=== PATIENT | female | born 2000 | race Caucasian/White ===

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

== ENCOUNTER → 2020-09-30 | Outpatient (REF) | payer OTHER ==
[2020-09-30 12:34] LABS: BASO # 0.1 10^3/uL (0.0-0.2); BASO % 0.6 % (0.0-1.0); EOS # 0.4 10^3/uL (0.0-0.5); EOS % 3.3 % (0.0-3.0); HEMATOCRIT 32.7 % (36.0-47.0); HEMOGLOBIN 8.9 g/dl (12.0-15.5); LYMPH # 3.3 10^3/uL (1.5-5.0); LYMPH % 25.3 % (24.0-44.0); MEAN CORPUSCULAR HEMOGLOBIN 18.4 pg (27.0-33.0); MEAN CORPUSCULAR HGB CONC 27.2 g/dl (32.0-36.5); MEAN CORPUSCULAR VOLUME 67.4 fl (80.0-96.0); MONO # 0.6 10^3/uL (0.0-0.8); NEUTROPHILS # 8.4 10^3/uL (1.5-8.5); NEUTROPHILS % 65.2 % (36.0-66.0); PLATELET COUNT, AUTOMATED 526 10^3/uL (150-450); RED BLOOD COUNT 4.85 10^6/uL (4.00-5.40); WHITE BLOOD COUNT 12.8 10^3/uL (4.0-10.0)
[2020-09-30 14:00] LABS: ALBUMIN 3.4 GM/DL (3.2-5.2); ALT/SGPT 34 U/L (12-78); BILIRUBIN,TOTAL 0.4 MG/DL (0.2-1.0); BLOOD UREA NITROGEN 9 MG/DL (7-18); CALCIUM LEVEL 9.2 MG/DL (8.5-10.1); CARBON DIOXIDE LEVEL 28 MEQ/L (21-32); CHLORIDE LEVEL 107 MEQ/L (98-107); CHOLESTEROL LEVEL 183 MG/DL (<200); CHOLESTEROL RISK RATIO 3.978 (<5); CORTISOL AM 10.2 UG/DL (4.3-22.4); GLUCOSE, FASTING 82 MG/DL (70-100); HDL CHOLESTEROL 46 MG/DL (>40); LDL CHOLESTEROL 112 MG/DL (<100); NON-HDL-C 137 MG/DL; POTASSIUM SERUM 3.8 MEQ/L (3.5-5.1); SODIUM LEVEL 141 MEQ/L (136-145); THYROID PEROXIDASE ANTIBODY 28.8 U/ML (<60.0); TOTAL 25(OH) VITAMIN D 10.6 NG/ML (30.0-100.0); TOTAL PROTEIN 6.7 GM/DL (6.4-8.2); TRIGLYCERIDES LEVEL 126 MG/DL (<150)
[2020-09-30 14:22] LABS: HEMOGLOBIN A1c 5.6 %
== END ==
LOC: M LAB REF 11:39
PROVIDERS: ATTEND Pediatrics
DX: L83 Acanthosis nigricans (principal); L20.9 Atopic dermatitis, unspecified; E03.9 Hypothyroidism, unspecified; E55.9 Vitamin D deficiency, unspecified; E66.01 Morbid (severe) obesity due to excess calories

== ENCOUNTER → 2020-11-23 | Outpatient (REF) | payer OTHER | LOC: M WUC 19:20 | PROVIDERS: ATTEND Physician Assistant | DX: J02.9 Acute pharyngitis, unspecified (principal) ==

== ENCOUNTER → 2022-06-01 | Outpatient (CLI) | payer OTHER ==
[2022-06-01 06:40] LABS: BASO # 0.1 10^3/uL (0.0-0.2); EOS # 0.6 10^3/uL (0.0-0.5); HEMATOCRIT 40.1 % (36.0-47.0); HEMOGLOBIN 12.4 g/dl (12.0-15.5); LYMPH % 25.5 % (24.0-44.0); MEAN CORPUSCULAR HEMOGLOBIN 23.3 pg (27.0-33.0); MEAN CORPUSCULAR HGB CONC 30.9 g/dl (32.0-36.5); MEAN CORPUSCULAR VOLUME 75.2 fl (80.0-96.0); MONO # 0.7 10^3/uL (0.0-0.8); MONO % 8.9 % (2.0-8.0); NEUTROPHILS # 4.5 10^3/uL (1.5-8.5); NEUTROPHILS % 56.3 % (36.0-66.0); PLATELET COUNT, AUTOMATED 377 10^3/uL (150-450); RED BLOOD COUNT 5.33 10^6/uL (4.00-5.40)
[2022-06-01 07:04] LABS: ERYTHROCYTE SEDIMENTATION RATE 22 mm/hr (0-20)
[2022-06-01 07:13] LABS: ALBUMIN 3.4 G/DL (3.2-5.2); ALKALINE PHOSPHATASE 88 U/L (46-116); ALT/SGPT 35 U/L (7.0-40); AST/SGOT 21 U/L (<34); BILIRUBIN,TOTAL 0.3 MG/DL (0.3-1.2); BLOOD UREA NITROGEN 11 MG/DL (9-23); CALCIUM LEVEL 8.8 MG/DL (8.5-10.1); CARBON DIOXIDE LEVEL 24 MMOL/L (20-31); CHLORIDE LEVEL 106 MMOL/L (98-107); CREATININE FOR GFR 0.71 MG/DL (0.55-1.30); GLOMERULAR FILTRATION RATE > 60.0 (>60); GLUCOSE, FASTING 86 MG/DL (60-100); POTASSIUM SERUM 4.1 MMOL/L (3.5-5.1); RHEUMATOID FACTOR QUANT < 3.5 IU/ML (<14); SODIUM LEVEL 139 MMOL/L (136-145); TOTAL PROTEIN 6.8 G/DL (5.7-8.2)
[2022-06-01 07:14] LABS: FOLATE 13.8 NG/ML (>5.4); TOTAL 25(OH) VITAMIN D 22.6 NG/ML (20.0-100.0); VITAMIN B12 LEVEL 319 PG/ML (211-911)
[2022-06-02 13:09] LABS: ANTINUCLEAR ANTIBODIES DIRECT Negative (Negative)
== END ==
LOC: M LAB 06:08
PROVIDERS: ATTEND Psychiatry & Neurology Neurology
DX: R51.9 Headache, unspecified (principal)

== ENCOUNTER → 2022-08-03 | Outpatient (REF) | payer OTHER | LOC: M LAB REF 21:13 | PROVIDERS: ATTEND Physician Assistant | DX: R50.9 Fever, unspecified (principal) ==

== ENCOUNTER 2022-09-13 07:00 | Emergency (ER) | payer OTHER ==
[~2022-09-13] VITALS: Ht 165.1 cm; Wt 140.9 kg
[2022-09-13] MEDS ORDERED: MECL-58 (07:09)
[2022-09-13] MEDS ORDERED: ZONI100C67 (07:09)
[2022-09-13] MEDS ORDERED: METF500T13 (07:09)
[2022-09-13] MEDS ORDERED: FERR325T19 (07:09)
[2022-09-13] MEDS ORDERED: DOCU100C16 (07:09)
[2022-09-13] MEDS ORDERED: FLUO20CA22 (07:09)
[2022-09-13] MEDS ORDERED: VITA200016 (07:09)
[2022-09-13] MEDS ORDERED: predniSONE 20 MG TAB PO ONE (07:30)
[2022-09-13] MEDS: COMBIVENT RESPIMAT 100-20MCG INHALER 4GM INH SCH ×3 (07:57→08:27)
[2022-09-13] MEDS ORDERED: ALBU6.7H6 INH (08:14)
[2022-09-13] MEDS ORDERED: PRED20TA PO (08:14)
[2022-09-13] MEDS ORDERED: BENZ-18 PO (08:14)
[2022-09-13 08:19] VITALS: BP 144/70
== END 2022-09-13 08:40 | disposition home or self-care (01) ==
LOC: M ED 07:00
DX: U07.1 COVID-19 (principal); R05.9 Cough, unspecified; E11.9 Type 2 diabetes mellitus without complications
CPT/HCPCS: 71046; 94640; 99283; J7512

== ENCOUNTER 2022-09-20 18:06 | Emergency (ER) | payer OTHER ==
[~2022-09-20] VITALS: Ht 167.6 cm; Wt 140.9 kg
[~2022-09-20 18:06] MED LIST: ALBU6.7H6 INH; BENZ-18 PO; DOCU100C16; FERR325T19; FLUO20CA22; MECL-58; METF500T13; PRED20TA PO; VITA200016; ZONI100C67
[2022-09-20 19:34] LABS: BASO # 0.1 10^3/uL (0.0-0.2); BASO % 0.7 % (0.0-1.0); EOS # 0.4 10^3/uL (0.0-0.5); EOS % 2.6 % (0.0-3.0); HEMATOCRIT 39.7 % (36.0-47.0); HEMOGLOBIN 12.4 g/dl (12.0-15.5); LYMPH # 2.8 10^3/uL (1.5-5.0); MEAN CORPUSCULAR HGB CONC 31.2 g/dl (32.0-36.5); MEAN CORPUSCULAR VOLUME 76.8 fl (80.0-96.0); MONO # 1.1 10^3/uL (0.0-0.8); MONO % 7.6 % (2.0-8.0); NEUTROPHILS # 9.7 10^3/uL (1.5-8.5); NEUTROPHILS % 68.8 % (36.0-66.0); PLATELET COUNT, AUTOMATED 397 10^3/uL (150-450); RED BLOOD COUNT 5.17 10^6/uL (4.00-5.40)
[2022-09-20 20:05] LABS: ALBUMIN 3.5 G/DL (3.2-5.2); ALKALINE PHOSPHATASE 100 U/L (46-116); ALT/SGPT 33 U/L (7.0-40); AST/SGOT 17 U/L (<34); BILIRUBIN,DIRECT 0.1 MG/DL (<0.4); BILIRUBIN,TOTAL 0.3 MG/DL (0.3-1.2); BLOOD UREA NITROGEN 10 MG/DL (9-23); CALCIUM LEVEL 9.1 MG/DL (8.5-10.1); CARBON DIOXIDE LEVEL 26 MMOL/L (20-31); CHLORIDE LEVEL 107 MMOL/L (98-107); CREATININE FOR GFR 0.71 MG/DL (0.55-1.30); GLOMERULAR FILTRATION RATE > 60.0 (>60); GLUCOSE, FASTING 82 MG/DL (60-100); POTASSIUM SERUM 4.3 MMOL/L (3.5-5.1); SODIUM LEVEL 140 MMOL/L (136-145); TOTAL PROTEIN 6.7 G/DL (5.7-8.2)
[2022-09-20] MEDS ORDERED: ALBUTEROL SULFATE 2.5MG/0.5ML INH NEB SOLN NEB ONE (21:55)
[2022-09-20] MEDS ORDERED: BENZ200C70 PO (23:03)
[2022-09-20] MEDS ORDERED: ALBU6.7H6 INH (23:03)
[2022-09-20 23:17] VITALS: BP 127/83
== END 2022-09-20 23:24 | disposition home or self-care (01) ==
LOC: M ED 18:06
DX: J20.9 Acute bronchitis, unspecified (principal); E11.9 Type 2 diabetes mellitus without complications

== ENCOUNTER → 2022-11-05 | Outpatient (REF) | payer OTHER ==
[~2022-11-05] MED LIST changes: +BENZ200C70 PO
[2022-11-05 17:46] LABS: BASO # 0.1 10^3/uL (0.0-0.2); BASO % 0.8 % (0.0-1.0); EOS # 0.3 10^3/uL (0.0-0.5); EOS % 3.1 % (0.0-3.0); HEMATOCRIT 39.8 % (36.0-47.0); HEMOGLOBIN 12.5 g/dl (12.0-15.5); LYMPH # 2.8 10^3/uL (1.5-5.0); LYMPH % 25.1 % (24.0-44.0); MEAN CORPUSCULAR HEMOGLOBIN 24.3 pg (27.0-33.0); MEAN CORPUSCULAR HGB CONC 31.4 g/dl (32.0-36.5); MEAN CORPUSCULAR VOLUME 77.4 fl (80.0-96.0); MONO # 0.6 10^3/uL (0.0-0.8); MONO % 5.4 % (2.0-8.0); NEUTROPHILS # 7.3 10^3/uL (1.5-8.5); NEUTROPHILS % 65.3 % (36.0-66.0); PLATELET COUNT, AUTOMATED 384 10^3/uL (150-450); RED BLOOD COUNT 5.14 10^6/uL (4.00-5.40); WHITE BLOOD COUNT 11.1 10^3/uL (4.0-10.0)
[2022-11-05 18:07] LABS: LIPASE 31 U/L (12-53)
[2022-11-05 18:09] LABS: ALBUMIN 3.9 G/DL (3.2-5.2); ALKALINE PHOSPHATASE 99 U/L (46-116); ALT/SGPT 21 U/L (7.0-40); AST/SGOT 11 U/L (<34); BILIRUBIN,TOTAL 0.3 MG/DL (0.3-1.2); BLOOD UREA NITROGEN 13 MG/DL (9-23); CALCIUM LEVEL 9.1 MG/DL (8.5-10.1); CARBON DIOXIDE LEVEL 23 MMOL/L (20-31); CHLORIDE LEVEL 106 MMOL/L (98-107); CREATININE FOR GFR 0.92 MG/DL (0.55-1.30); GLOMERULAR FILTRATION RATE > 60.0 (>60); GLUCOSE, FASTING 74 MG/DL (60-100); SODIUM LEVEL 140 MMOL/L (136-145); TOTAL PROTEIN 7.2 G/DL (5.7-8.2)
== END ==
LOC: M LAB REF 16:21
PROVIDERS: ATTEND Pediatrics
DX: E66.01 Morbid (severe) obesity due to excess calories (principal); R10.11 Right upper quadrant pain; R73.03 Prediabetes

== ENCOUNTER → 2022-11-23 | Outpatient (CLI) | payer OTHER ==
[~2022-11-23] MED LIST changes: +ONDA4TAB6 PO; +PROZ20CA11; +VYVA30CA4
== END ==
LOC: M RAD 08:20
PROVIDERS: ATTEND Pediatrics
DX: R10.11 Right upper quadrant pain (principal); Z53.8 Procedure and treatment not carried out for other reasons

== ENCOUNTER → 2023-02-16 | Outpatient (CLI) | payer OTHER | LOC: M RAD 11:42 | PROVIDERS: ATTEND Surgery | DX: R10.11 Right upper quadrant pain (principal) | CPT/HCPCS: 78227; A9537 ==

== ENCOUNTER → 2023-03-31 | Day surgery (SDC) | payer OTHER ==
[~2023-03-31] VITALS: Ht 167.6 cm; Wt 143.3 kg
[~2023-03-31] MED LIST changes: +ACET1TAB55 PO; +DEPO150I IM; -FERR325T19; +FERR325T19 PO; -FLUO20CA22; +FLUO20CA22 PO; +IBUP200C28 PO; -METF500T13; +METF500T13 PO; +METOCLOPRAMIDE INJ 10MG/2ML VIAL As Ordered ONE; +MIDAZOLAM INJ 2MG/2ML VIAL As Ordered ONE; +PROA1AER2 INH; +SUGAMMADEX SODIUM 500 MG/5 ML VIAL (BRIDION) As Ordered ONE; -VITA200016; +VITA200016 PO; -VYVA30CA4; +VYVA30CA4 PO; -ZONI100C67; +ZONI100C67 PO; +fentaNYL 100 MCG/2 ML INJECTION As Ordered ONE; +propofoL 200 MG/20 ML VIAL As Ordered ONE
== END | disposition home or self-care (01) ==
LOC: M SDC 09:17
PROVIDERS: ATTEND Surgery
DX: K82.8 Other specified diseases of gallbladder (principal); Z53.09 Procedure and treatment not carried out because of other contraindication

== ENCOUNTER 2023-04-14 10:26 | Day surgery (SDC) | payer OTHER ==
[~2023-04-14] VITALS: Ht 167.6 cm; Wt 143.1 kg
[~2023-04-14 10:26] MED LIST changes: +ALLE180T33 PO; -METOCLOPRAMIDE INJ 10MG/2ML VIAL As Ordered ONE; -MIDAZOLAM INJ 2MG/2ML VIAL As Ordered ONE; -SUGAMMADEX SODIUM 500 MG/5 ML VIAL (BRIDION) As Ordered ONE; -fentaNYL 100 MCG/2 ML INJECTION As Ordered ONE; -propofoL 200 MG/20 ML VIAL As Ordered ONE
[2023-04-14] MEDS ORDERED: LR 1,000 ML IV SCH ×2 (10:45→14:45)
[2023-04-14] MEDS ORDERED: ONDANSETRON 4MG 2ML VIAL As Ordered ONE (14:00)
[2023-04-14] MEDS ORDERED: MIDAZOLAM INJ 2MG/2ML VIAL As Ordered ONE (14:00)
[2023-04-14] MEDS ORDERED: ROCURONIUM BROMIDE 50MG/5ML VIAL As Ordered ONE (14:00)
[2023-04-14] MEDS ORDERED: ACETAMINOPHEN 1000MG 100ML IV BAG As Ordered ONE (14:00)
[2023-04-14] MEDS ORDERED: SUGAMMADEX SODIUM 500 MG/5 ML VIAL (BRIDION) As Ordered ONE (14:00)
[2023-04-14] MEDS ORDERED: propofoL 200 MG/20 ML VIAL As Ordered ONE (14:00)
[2023-04-14] MEDS ORDERED: fentaNYL 250 MCG/5 ML INJECTION As Ordered ONE (14:00)
[2023-04-14] MEDS ORDERED: dexmedeTOMIDine (4MCG/ML)200MCG/50ML BTL (PRECEDEX) As Ordered ONE (14:00)
[2023-04-14] MEDS ORDERED: LIDOCAINE 2% 100MG/5ML SDV (FOR ANES.) As Ordered ONE (14:00)
[2023-04-14] MEDS ORDERED: ESMOLOL INJ 100MG/10ML VIAL As Ordered ONE (14:07)
[2023-04-14] MEDS ORDERED: KETOROLAC 60MG 2ML VIAL As Ordered ONE (14:13)
[2023-04-14] MEDS ORDERED: ONDANSETRON 4MG 2ML VIAL IV PRN (14:45)
[2023-04-14] MEDS ORDERED: MEPERIDINE 25 MG/ML 1ML VIAL IV PRN (14:45)
[2023-04-14] MEDS: fentaNYL 100 MCG/2 ML INJECTION IV PRN ×3 (15:01→15:12)
[2023-04-14] MEDS: oxyCODONE 5MG TAB PO PRN ×2 (15:13→15:47)
[2023-04-14] MEDS: HYDROMORPHONE HCL 0.5 MG/ 0.5 ML SYRINGE IV PRN ×2 (15:27→15:37)
[2023-04-14 16:45] VITALS: BP 128/87; TEMP 98; O2SAT 95
[2023-04-14] MEDS ORDERED: NORCO, ANEXSIA 5/325MG TABLET (HYDROcodone/ACETAMINOPHEN) PO PRN (22:40)
== END 2023-04-14 16:52 | disposition home or self-care (01) ==
LOC: M SDC 10:26
PROVIDERS: ATTEND Surgery
DX: K81.1 Chronic cholecystitis (principal); E11.9 Type 2 diabetes mellitus without complications; E03.9 Hypothyroidism, unspecified; R06.83 Snoring; J45.909 Unspecified asthma, uncomplicated; F90.9 Attention-deficit hyperactivity disorder, unspecified type; F41.9 Anxiety disorder, unspecified; F32.A Depression, unspecified; Z68.43 Body mass index [BMI] 50.0-59.9, adult; D64.9 Anemia, unspecified; Z79.899 Other long term (current) drug therapy; Z79.84 Long term (current) use of oral hypoglycemic drugs
CPT/HCPCS: 47562; 88304; J0131; J0665; J1100; J1170; J1805; J1885; J2250; J2405; J3010; S2900

== ENCOUNTER → 2023-04-20 | Outpatient (REF) | payer OTHER ==
[2023-04-20 17:18] LABS: BASO # 0.1 10^3/uL (0.0-0.2); BASO % 0.6 % (0.0-1.0); EOS # 0.2 10^3/uL (0.0-0.5); EOS % 2.4 % (0.0-3.0); HEMOGLOBIN 13.7 g/dl (12.0-15.5); LYMPH # 1.8 10^3/uL (1.5-5.0); LYMPH % 18.3 % (24.0-44.0); MEAN CORPUSCULAR HEMOGLOBIN 24.3 pg (27.0-33.0); MEAN CORPUSCULAR HGB CONC 31.1 g/dl (32.0-36.5); MONO # 0.5 10^3/uL (0.0-0.8); MONO % 5.2 % (2.0-8.0); NEUTROPHILS # 7.4 10^3/uL (1.5-8.5); NEUTROPHILS % 73.3 % (36.0-66.0); PLATELET COUNT, AUTOMATED 412 10^3/uL (150-450); RED BLOOD COUNT 5.64 10^6/uL (4.00-5.40); WHITE BLOOD COUNT 10.1 10^3/uL (4.0-10.0)
[2023-04-20 17:25] LABS: CHOLESTEROL RISK RATIO 3.72 (<5); HDL CHOLESTEROL 43.7 MG/DL (>40); LDL CHOLESTEROL 97.5 MG/DL (<100); NON-HDL-C 119.3 MG/DL; PERCENT SATURATION 6.6 % (13.2-45.0)
[2023-04-20 17:28] LABS: FERRITIN 46.5 NG/ML (7.3-270.7); THYROID STIMULATING HORMONE 3.056 uIU/ML (0.55-4.78)
[2023-04-20 17:50] LABS: HEMOGLOBIN A1c 4.9 % (4.0-6.0)
== END ==
LOC: M LAB REF 16:21
PROVIDERS: ATTEND Pediatrics
DX: R73.03 Prediabetes (principal); D50.9 Iron deficiency anemia, unspecified; E66.01 Morbid (severe) obesity due to excess calories

== ENCOUNTER → 2023-04-28 | Outpatient (CLI) | payer OTHER ==
[2023-04-28 13:09] LABS: BASO # 0.1 10^3/uL (0.0-0.2); BASO % 0.7 % (0.0-1.0); EOS # 0.6 10^3/uL (0.0-0.5); HEMATOCRIT 40.8 % (36.0-47.0); HEMOGLOBIN 12.9 g/dl (12.0-15.5); LYMPH # 2.4 10^3/uL (1.5-5.0); LYMPH % 20.5 % (24.0-44.0); MEAN CORPUSCULAR HEMOGLOBIN 23.9 pg (27.0-33.0); MEAN CORPUSCULAR HGB CONC 31.6 g/dl (32.0-36.5); MEAN CORPUSCULAR VOLUME 75.7 fl (80.0-96.0); MONO # 0.5 10^3/uL (0.0-0.8); MONO % 4.1 % (2.0-8.0); NEUTROPHILS % 69.3 % (36.0-66.0); PLATELET COUNT, AUTOMATED 460 10^3/uL (150-450); RED BLOOD COUNT 5.39 10^6/uL (4.00-5.40); WHITE BLOOD COUNT 11.6 10^3/uL (4.0-10.0)
[2023-04-28 13:37] LABS: ALBUMIN 3.5 G/DL (3.2-5.2); ALKALINE PHOSPHATASE 91 U/L (46-116); ALT/SGPT 29 U/L (7.0-40); AST/SGOT 9 U/L (<34); BILIRUBIN,TOTAL 0.3 MG/DL (0.3-1.2); BLOOD UREA NITROGEN 11 MG/DL (9-23); CALCIUM LEVEL 9.6 MG/DL (8.5-10.1); CARBON DIOXIDE LEVEL 25 MMOL/L (20-31); CHLORIDE LEVEL 108 MMOL/L (98-107); CREATININE FOR GFR 0.66 MG/DL (0.55-1.30); GLOMERULAR FILTRATION RATE > 60.0 (>60); GLUCOSE, FASTING 93 MG/DL (60-100); POTASSIUM SERUM 4.2 MMOL/L (3.5-5.1); SODIUM LEVEL 142 MMOL/L (136-145); TOTAL PROTEIN 7.2 G/DL (5.7-8.2)
== END ==
LOC: M LAB 12:02
PROVIDERS: ATTEND Physician Assistant
DX: K82.8 Other specified diseases of gallbladder (principal)

== ENCOUNTER 2023-05-24 07:12 | Emergency (ER) | payer OTHER ==
[~2023-05-24] VITALS: Ht 167.6 cm; Wt 143.8 kg
[2023-05-24 07:14] VITALS: BP 134/78; TEMP 96.6; O2SAT 96
[2023-05-24] MEDS ORDERED: ONDANSETRON 4MG 2ML VIAL IV ONE (07:45)
[2023-05-24 08:09] LABS: BASO # 0.1 10^3/uL (0.0-0.2); BASO % 0.9 % (0.0-1.0); EOS # 0.4 10^3/uL (0.0-0.5); EOS % 4.2 % (0.0-3.0); HEMOGLOBIN 13.3 g/dl (12.0-15.5); LYMPH # 2.3 10^3/uL (1.5-5.0); LYMPH % 22.5 % (24.0-44.0); MEAN CORPUSCULAR HEMOGLOBIN 24.4 pg (27.0-33.0); MEAN CORPUSCULAR HGB CONC 31.7 g/dl (32.0-36.5); MEAN CORPUSCULAR VOLUME 77.2 fl (80.0-96.0); MONO # 0.6 10^3/uL (0.0-0.8); NEUTROPHILS # 6.9 10^3/uL (1.5-8.5); NEUTROPHILS % 66.1 % (36.0-66.0); PLATELET COUNT, AUTOMATED 381 10^3/uL (150-450); RED BLOOD COUNT 5.44 10^6/uL (4.00-5.40); WHITE BLOOD COUNT 10.4 10^3/uL (4.0-10.0)
[2023-05-24] MEDS ORDERED: NS 1,000 ML IV ONE (08:10)
[2023-05-24 08:32] LABS: LIPASE 23 U/L (12-53)
[2023-05-24 08:34] LABS: ALBUMIN 3.6 G/DL (3.2-5.2); ALKALINE PHOSPHATASE 95 U/L (46-116); ALT/SGPT 33 U/L (7.0-40); AST/SGOT 14 U/L (<34); BILIRUBIN,DIRECT 0.2 MG/DL (<0.4); BILIRUBIN,TOTAL 0.4 MG/DL (0.3-1.2); TOTAL PROTEIN 7.1 G/DL (5.7-8.2)
[2023-05-24] MEDS ORDERED: ISOVUE-370 76% 100ML VIAL As Ordered ONE (08:44)
[2023-05-24 09:07] LABS: RSV AMPLIFICATION NEGATIVE (NEGATIVE)
[2023-05-24 09:15] LABS: HCG, SERUM QUALITATIVE NEGATIVE (NEGATIVE)
[2023-05-24] MEDS ORDERED: ONDA4TAB6 PO (09:28)
== END 2023-05-24 09:30 | disposition home or self-care (01) ==
LOC: M ED 07:12
DX: I88.0 Nonspecific mesenteric lymphadenitis (principal); Z79.899 Other long term (current) drug therapy; Z79.84 Long term (current) use of oral hypoglycemic drugs; Z79.1 Long term (current) use of non-steroidal anti-inflammatories (NSAID); Z79.51 Long term (current) use of inhaled steroids
CPT/HCPCS: 74177; 80047; 80076; 83690; 84702; 84703; 85025; 87631; 96361; 96374; 99283; J2405; Q9967